=== PATIENT | male | born 1995 | race Two or more races ===

== ENCOUNTER 2022-09-10 01:25 | Emergency (ER) | payer OTHER ==
[~2022-09-10] VITALS: Ht 167.6 cm; Wt 65.0 kg
[2022-09-10 01:35] VITALS: BP 113/81
[2022-09-10 02:13] LABS: Basophils # (auto) 0.1 10 ^3/uL (0-0.2); Basophils % (auto) 0.6 % (0.0-2.0); Eosinophils # (auto) 0.1 10 ^3/uL (0-0.8); Hematocrit 47.1 % (41.0-53.0); Lymphocytes # (auto) 2.8 10 ^3/uL (0.4-5.4); Lymphocytes % (auto) 30.1 % (10.0-50.0); Mean Corpuscular Hemoglobin 27.7 pg (28.0-32.0); Mean Corpuscular Hgb Conc. 33.9 g/dL (32.0-36.0); Mean Corpuscular Volume 81.8 fL (80.0-100.0); Monocytes # (auto) 0.6 10 ^3/uL (0-1.3); Monocytes % (auto) 6.7 % (0.0-12.0); Neutrophils # (auto) 5.7 10 ^3/uL (1.6-8.6); Neutrophils % (auto) 61.6 % (37.0-80.0); Nucleated Red Blood Cells % 0.3 %; Red Blood Cells 5.76 10^6/uL (4.5-5.90); White Blood Cell 9.3 10^3/uL (4.4-10.8)
[2022-09-10 02:29] LABS: INR 0.94 (0.9-1.15); Partial Thromboplastin Time 28.3 sec (24.6-33.4)
[2022-09-10 03:02] LABS: Albumin 4.3 g/dL (3.4-5.0); Calcium 9.2 mg/dL (8.5-10.1); Magnesium 2.4 mg/dL (1.6-2.6); Potassium 4.4 mmol/L (3.5-5.1)
[2022-09-10 03:05] LABS: BUN/Creatinine Ratio 15.3 (10.0-20.0); Bilirubin, Total 0.5 mg/dL (0.2-1.0); Total Protein 8.3 g/dL (6.4-8.2)
== END 2022-09-10 05:47 | disposition home or self-care (01) ==
LOC: ER 01:25
DX: R07.2 Precordial pain (principal); E11.65 Type 2 diabetes mellitus with hyperglycemia; R74.8 Abnormal levels of other serum enzymes; M54.9 Dorsalgia, unspecified
CPT/HCPCS: 36415; 71045; 80053; 82962; 83735; 83880; 84484; 85025; 85610; 85730; 93005

== ENCOUNTER → 2022-09-11 | Outpatient (CLI) | payer OTHER ==
[2022-09-11 11:52] LABS: Urine Bacteria NONE SEEN /hpf (None Seen); Urine Blood Negative /uL (Negative); Urine Specific Gravity 1.029 (1.001-1.035); Urine WBC 1 /hpf (0 - 3)
[2022-09-11 12:38] LABS: CRP High Sensitivity 0.24 mg/dL (< 0.3)
== END | disposition home or self-care (01) ==
LOC: LAB 11:21
PROVIDERS: ATTEND Internal Medicine
DX: E11.9 Type 2 diabetes mellitus without complications (principal); R07.9 Chest pain, unspecified
CPT/HCPCS: 36415; 80061; 81001; 82570; 85379; 85652; 86141

== ENCOUNTER → 2022-10-02 | Outpatient (CLI) | payer OTHER | END | disposition home or self-care (01) | LOC: XYW 09:30 | PROVIDERS: ATTEND Internal Medicine | DX: R07.9 Chest pain, unspecified (principal) | CPT/HCPCS: 93306 ==

== ENCOUNTER → 2022-12-12 | Outpatient (CLI) | payer OTHER ==
[2022-12-12 11:08] LABS: Alanine Aminotransferase 33 U/L (7-40); Alkaline Phosphatase 112 U/L (46-116); Anion Gap 9.2 (5-15); Calcium 10.2 mg/dL (8.5-10.1); Carbon Dioxide 28.8 mmol/L (20-30); Chloride 103 mmol/L (98-107); Potassium 4.2 mmol/L (3.5-5.1); Sodium 141 mmol/L (136-145)
[2022-12-12 11:09] LABS: BUN/Creatinine Ratio 18.8 (10.0-20.0); Blood Urea Nitrogen 12 mg/dL (9-23); Glucose 81 mg/dL (74-106)
[2022-12-12 11:10] LABS: Creatinine, Urine 109.84 mg/dL (30.0-125.0)
[2022-12-12 11:11] LABS: Albumin 5.2 g/dL (3.2-4.8); Aspartate Aminotransferase 22 U/L (13-40); Bilirubin, Direct 0.2 mg/dL (<0.3); Bilirubin, Total 0.6 mg/dL (0.2-1.0); Total Protein 7.8 g/dL (5.7-8.2)
== END | disposition home or self-care (01) ==
LOC: LAB 09:05
PROVIDERS: ATTEND Internal Medicine
DX: E11.9 Type 2 diabetes mellitus without complications (principal); E78.5 Hyperlipidemia, unspecified
CPT/HCPCS: 36415; 80048; 80076; 82043; 82570; 83036

== ENCOUNTER 2024-01-07 18:31 | Inpatient (IN) | payer MEDICAID, OTHER ==
[~2024-01-07] VITALS: Ht 167.6 cm; Wt 62.0 kg
[2024-01-07] MEDS ORDERED: DEXTROSE (50%) 50ML SYRG IV PRN ×2 (18:45→21:15)
[2024-01-07] MEDS: InsuLIN REG 1unit/0.01ml Soln (100units/ml) IV ONE (19:02)
[2024-01-07] MEDS: INSULIN LANTUS (GLARGINE) 1 /0.01ml (100units/ml) SC ONE (19:02)
[2024-01-07] MEDS: SODIUM CHLORIDE 0.9% 1,000 ML IVB ONE (19:03)
[2024-01-07 19:16] LABS: Hemoglobin 17.9 g/dL (13.5-17.5); Mean Corpuscular Volume 93.4 fL (80.0-100.0); Platelet Count (auto) 437 10^3/uL (140-450); Red Cell Distribution Width 16.8 % (11.8-14.3)
[2024-01-07 19:19] LABS: Base Excess -25.2 mmol/L (-2.0-3.0)
[2024-01-07 19:21] LABS: Hematocrit 59.8 % (41.0-53.0)
[2024-01-07 19:25] LABS: White Blood Cell 30.6 10^3/uL (4.4-10.8)
[2024-01-07 19:27] LABS: Basophils % (manual) 0 (0.0-2.0); Blast Cells 0; Eosinophils % (manual) 0 (0-7); Metamyelocytes % 0; Myelocytes % 0; Promyelocytes % 0; Reactive Lymphocytes 0
[2024-01-07 19:33] LABS: Anion Gap 35.00001 (5-15); Chloride 108 mmol/L (98-107); Potassium 4.1 mmol/L (3.5-5.1); Sodium 153 mmol/L (136-145)
[2024-01-07 19:39] LABS: BUN/Creatinine Ratio 18.2 (10.0-20.0); Blood Urea Nitrogen 79 mg/dL (9-23)
[2024-01-07 19:50] LABS: Carbon Dioxide < 10 mmol/L (20-30); Glucose 1034 mg/dL (74-106)
[2024-01-07] MEDS: INSULIN DRIP 100 UNIT/100ML 100 ML IV SCH ×3 (19:52→23:26)
[2024-01-07] MEDS: ACCU-CHEK COMFORT CURVE STRIP VI SCH ×2 (19:52→22:33)
[2024-01-07] MEDS: SODIUM BICARB 8.4% 50Meq/50ml SYR Vial IV ONE ×2 (19:52)
[2024-01-07] MEDS: SODIUM CHLORIDE 0.9% 1,000 ML IV ONE (20:28)
[2024-01-07 20:32] LABS: COVID19 ANTIGEN SOFIA FIA NEGATIVE (NEGATIVE)
[2024-01-07 20:34] LABS: Band Neutrophils % (manual) 2
[2024-01-07 20:35] LABS: Anisocytosis Slight; Large Platelets FEW; Lymphocytes % (manual) 7 (10.0-50.0); Monocytes % (manual) 10 (0-12); Platelet Estimate Adequate
[2024-01-07 20:37] LABS: Lactic Acid w/Reflex 3.5 mmol/L (0.4-2.0)
[2024-01-07] MEDS: cefTRIAXone 1GM/50ML D5W 50 ML IV ONE (21:00)
[2024-01-07] MEDS: POTASSIUM CHL 20MEQ/100ML 100 ML IV ONE (21:51)
[2024-01-07 23:19] LABS: Urine Bacteria None Seen /hpf (None Seen)
[2024-01-07 23:28] LABS: Urine Blood TRACE /uL (Negative); Urine Clarity Clear (Clear); Urine Color Light-Yellow (Yellow); Urine Protein, UAD 1+ (Negative); Urine Specific Gravity 1.022 (1.001-1.035); Urine Urobilinogen Normal (Negative); Urine WBC 2 /hpf (0 - 3); Urine pH 5.5 (5.0-9.0)
[2024-01-08] VITALS (36 sets, daily range): BP systolic 108–135; BP diastolic 72–88; PULSE 96–129; RESP 9–48; TEMP 97.7–98.4; O2SAT 95–99
[2024-01-08] MEDS ORDERED: MORPHINE SULFATE INJ 2 MG/ml SYRG IV PRN (01:15)
[2024-01-08] MEDS ORDERED: ONDANSETRON HCL 4 MG/2 ML VIAL IV PRN (01:15)
[2024-01-08] MEDS ORDERED: NITROGLYCERIN 0.4 MG SL TAB SL PRN (01:15)
[2024-01-08 01:24] LABS: Potassium 2.8 mmol/L (3.5-5.1)
[2024-01-08 01:25] LABS: Anion Gap 21 (5-15); Carbon Dioxide 18 mmol/L (20-30)
[2024-01-08 01:26] LABS: Calcium 8.7 mg/dL (8.7-10.4)
[2024-01-08 01:28] LABS: Base Excess -6.5 mmol/L (-2.0-3.0)
[2024-01-08 01:30] LABS: BUN/Creatinine Ratio 22.2 (10.0-20.0)
[2024-01-08] MEDS: LORazepam 2MG/ML-1ML VIAL IV ONE (01:32)
[2024-01-08] MEDS: ACCU-CHEK COMFORT CURVE STRIP VI SCH (01:34)
[2024-01-08 01:37] LABS: Blood Urea Nitrogen 59 mg/dL (9-23); Chloride 131 mmol/L (98-107); Glucose 398 mg/dL (74-106)
[2024-01-08 01:38] LABS: Sodium 170 mmol/L (136-145)
[2024-01-08] MEDS: SOD CHL 0.45% 1,000 ML IV SCH (03:04)
[2024-01-08] MEDS ORDERED: SODIUM CHLORIDE 0.9% 1,000 ML IV SCH ×2 (05:15→07:15)
[2024-01-08 06:28] LABS: Eosinophils # (auto) 0 10 ^3/uL (0-0.8); Lymphocytes # (auto) 0.8 10 ^3/uL (0.4-5.4); Lymphocytes % (auto) 3.5 % (10.0-50.0); Mean Corpuscular Hemoglobin 28.3 pg (28.0-32.0); Monocytes # (auto) 2.7 10 ^3/uL (0-1.3); Nucleated Red Blood Cells % 0.1 %
[2024-01-08 06:34] LABS: Basophils # (auto) 0.1 10 ^3/uL (0-0.2); Basophils % (auto) 0.3 % (0.0-2.0); Hematocrit 51.4 % (41.0-53.0); Hemoglobin 17.5 g/dL (13.5-17.5); Mean Corpuscular Hgb Conc. 34.1 g/dL (32.0-36.0); Monocytes % (auto) 11.6 % (0.0-12.0); Neutrophils # (auto) 19.4 10 ^3/uL (1.6-8.6); Neutrophils % (auto) 84.6 % (37.0-80.0); Platelet Count (auto) 323 10^3/uL (140-450); Red Blood Cells 6.19 10^6/uL (4.5-5.90); Red Cell Distribution Width 14.4 % (11.8-14.3)
[2024-01-08 06:44] LABS: Alanine Aminotransferase 16 U/L (7-40); Albumin 4.5 g/dL (3.2-4.8); Alkaline Phosphatase 159 U/L (46-116); Anion Gap 13 (5-15); Aspartate Aminotransferase < 8 U/L (13-40); BUN/Creatinine Ratio 25.1 (10.0-20.0); Bilirubin, Total 0.6 mg/dL (0.2-1.0); Carbon Dioxide 26 mmol/L (20-30); Chloride 135 mmol/L (98-107); Magnesium 3.3 mg/dL (1.6-2.6); Phosphorus 1.7 mg/dL (2.4-5.1); Total Protein 7.4 g/dL (5.7-8.2)
[2024-01-08 06:45] LABS: Blood Urea Nitrogen 49 mg/dL (9-23); Glucose 164 mg/dL (74-106)
[2024-01-08 06:46] LABS: Sodium 174 mmol/L (136-145)
[2024-01-08] MEDS: D5W/SOD CHL 0.45% 1,000 ML IV SCH (07:55)
[2024-01-08] MEDS: INSULIN DRIP 100 UNIT/100ML 100 ML IV SCH ×2 (08:15→10:45)
[2024-01-08] MEDS: POTASSIUM CHL 20MEQ/100ML 100 ML IV SCH (08:23)
[2024-01-08] MEDS ORDERED: INSULIN LANTUS (GLARGINE) 1 /0.01ml (100units/ml) SC SCH (10:00)
[2024-01-08] MEDS: POTASSIUM PHOSPHATE 22 MEQ in SODIUM CHL 0.9% 100 ML IV ONE (11:21)
[2024-01-08] MEDS: POTASSIUM CHLORIDE 40 MEQ in D5W 5% 1,000 ML IV SCH (11:41)
[2024-01-08] MEDS: THIAMINE 100mg/ml INJ (200mg/2ml VIAL) IV SCH (12:11)
[2024-01-08 14:21] LABS: Chloride 135 mmol/L (98-107)
[2024-01-08 14:22] LABS: Anion Gap 7 (5-15); Calcium 8.7 mg/dL (8.7-10.4); Carbon Dioxide 29 mmol/L (20-30)
[2024-01-08 14:27] LABS: BUN/Creatinine Ratio 28.5 (10.0-20.0); Blood Urea Nitrogen 43 mg/dL (9-23)
[2024-01-08 14:28] LABS: Glucose 269 mg/dL (74-106)
[2024-01-08 14:30] LABS: Sodium 171 mmol/L (136-145)
[2024-01-08] MEDS: D5W 5% 1,000 ML IV ONE (16:18)
[2024-01-08 19:49] LABS: Chloride 128 mmol/L (98-107); Potassium 3.6 mmol/L (3.5-5.1)
[2024-01-08 19:50] LABS: Anion Gap 10 (5-15); Carbon Dioxide 29 mmol/L (20-30)
[2024-01-08 19:51] LABS: Calcium 8.6 mg/dL (8.7-10.4)
[2024-01-08 19:55] LABS: BUN/Creatinine Ratio 25.8 (10.0-20.0); Blood Urea Nitrogen 34 mg/dL (9-23); Glucose 229 mg/dL (74-106)
[2024-01-08 20:10] LABS: Sodium 167 mmol/L (136-145)
[2024-01-08] MEDS: D5W 5% 1,000 ML IV SCH (22:00)
[2024-01-08] MEDS ORDERED: D5W 5% 1,000 ML IV SCH (22:00)
[2024-01-08] MEDS: POTASSIUM CHL 20MEQ/100ML 100 ML IV ONE (23:00)
[2024-01-09] VITALS (20 sets, daily range): BP systolic 100–122; BP diastolic 49–76; PULSE 75–110; RESP 11–21; TEMP 97.9–98.9; O2SAT 93–98
[2024-01-09 05:21] LABS: Chloride 124 mmol/L (98-107)
[2024-01-09 05:22] LABS: Anion Gap 5 (5-15); Calcium 8.2 mg/dL (8.7-10.4); Carbon Dioxide 32 mmol/L (20-30)
[2024-01-09 05:27] LABS: BUN/Creatinine Ratio 25.5 (10.0-20.0); Blood Urea Nitrogen 27 mg/dL (9-23); Glucose 179 mg/dL (74-106)
[2024-01-09 05:35] LABS: Sodium 161 mmol/L (136-145)
[2024-01-09] MEDS: POTASSIUM CHL 20MEQ/100ML 100 ML IV SCH (06:32)
[2024-01-09 09:35] LABS: Protein, Urine 59.4 mg/dL (0.0-11.9)
[2024-01-09 09:38] LABS: Creatinine, Urine 108.47 mg/dL (30.0-125.0)
[2024-01-09] MEDS ORDERED: DEXTROSE (50%) 50ML SYRG IV PRN (10:30)
[2024-01-09] MEDS ORDERED: POTASSIUM CHLORIDE 40 MEQ, LIDOCAINE 1% (LOCAL ANESTH.) 4 ML in SODIUM CHL 0.9% 250 ML IV ONE (10:30)
[2024-01-09] MEDS: D5W 5% 1,000 ML IV SCH (11:03)
[2024-01-09] MEDS: PANTOPRAZOLE 40 MG/10 ML VIAL INJ IV ONE (11:18)
[2024-01-09] MEDS: POTASSIUM PHOSPHATE 44 MEQ in D5W 5% 250 ML IV ONE (11:20)
[2024-01-09] MEDS: INSULIN LANTUS (GLARGINE) 1 /0.01ml (100units/ml) SC ONE (11:21)
[2024-01-09] MEDS: ACCU-CHEK COMFORT CURVE STRIP VI SCH (12:05)
[2024-01-09] MEDS: InsuLIN REG 1unit/0.01ml Soln (100units/ml) SC SCH (12:06)
[2024-01-09 14:54] LABS: Anion Gap 8 (5-15); Carbon Dioxide 30 mmol/L (20-30); Chloride 116 mmol/L (98-107); Potassium 3.6 mmol/L (3.5-5.1)
[2024-01-09 14:55] LABS: Calcium 8.6 mg/dL (8.7-10.4)
[2024-01-09 14:59] LABS: Glucose 216 mg/dL (74-106)
[2024-01-09 15:00] LABS: BUN/Creatinine Ratio 22.1 (10.0-20.0); Blood Urea Nitrogen 17 mg/dL (9-23); Magnesium 2.5 mg/dL (1.6-2.6)
[2024-01-09 15:04] LABS: Sodium 154 mmol/L (136-145)
[2024-01-09 16:38] LABS: Urine Bacteria None Seen /hpf (None Seen)
[2024-01-09 16:53] LABS: Urine Blood 3+ /uL (Negative); Urine Clarity Ex.Turbid (Clear); Urine Color Light-Red (Yellow); Urine Protein, UAD 1+ (Negative); Urine Urobilinogen Normal (Negative); Urine WBC 311 /hpf (0 - 3)
[2024-01-09] MEDS: INSULIN LANTUS (GLARGINE) 1 /0.01ml (100units/ml) SC SCH (22:02)
[2024-01-09] MEDS: THROAT LOZENGES(CEPASTAT) MT PRN (22:45)
[2024-01-10] VITALS (7 sets, daily range): BP systolic 104–118; BP diastolic 59–70; PULSE 69–86; RESP 14–17; TEMP 97.6–99.4; O2SAT 96–100
[2024-01-10 06:02] LABS: Basophils # (auto) 0 10 ^3/uL (0-0.2); Basophils % (auto) 0.2 % (0.0-2.0); Eosinophils # (auto) 0.1 10 ^3/uL (0-0.8); Eosinophils % (auto) 0.7 % (0.0-7.0); Hematocrit 41.4 % (41.0-53.0); Hemoglobin 14.7 g/dL (13.5-17.5); Lymphocytes # (auto) 2.4 10 ^3/uL (0.4-5.4); Lymphocytes % (auto) 27.3 % (10.0-50.0); Mean Corpuscular Hemoglobin 29.3 pg (28.0-32.0); Mean Corpuscular Hgb Conc. 35.6 g/dL (32.0-36.0); Mean Corpuscular Volume 82.3 fL (80.0-100.0); Monocytes # (auto) 0.5 10 ^3/uL (0-1.3); Monocytes % (auto) 6.3 % (0.0-12.0); Neutrophils # (auto) 5.7 10 ^3/uL (1.6-8.6); Neutrophils % (auto) 65.5 % (37.0-80.0); Platelet Count (auto) 188 10^3/uL (140-450); Red Blood Cells 5.03 10^6/uL (4.5-5.90); Red Cell Distribution Width 13.8 % (11.8-14.3); White Blood Cell 8.7 10^3/uL (4.4-10.8)
[2024-01-10 06:15] LABS: Alanine Aminotransferase 20 U/L (7-40); Albumin 3.9 g/dL (3.2-4.8); Alkaline Phosphatase 119 U/L (46-116); Anion Gap 4 (5-15); Aspartate Aminotransferase 19 U/L (13-40); BUN/Creatinine Ratio 21.7 (10.0-20.0); Blood Urea Nitrogen 13 mg/dL (9-23); Calcium 8.9 mg/dL (8.7-10.4); Carbon Dioxide 31 mmol/L (20-30); Chloride 115 mmol/L (98-107); Glucose 192 mg/dL (74-106); Magnesium 2.5 mg/dL (1.6-2.6); Phosphorus 3.1 mg/dL (2.4-5.1); Potassium 3.3 mmol/L (3.5-5.1); Sodium 150 mmol/L (136-145)
[2024-01-10 06:16] LABS: Total Protein 6.1 g/dL (5.7-8.2)
[2024-01-10] MEDS: cefTRIAXone 1GM/50ML D5W 50 ML IV SCH (08:21)
[2024-01-10] MEDS: PANTOPRAZOLE 40 MG/10 ML VIAL INJ IV SCH (12:30)
[2024-01-10] MEDS: POTASSIUM CHL 20MEQ/100ML 100 ML IV SCH (13:00)
[2024-01-10] MEDS: Glucerna Carbsteady SHAKE Vanilla 8oz PO SCH (18:00)
[2024-01-10] MEDS ORDERED: Ensure HIGH Protein Vanilla 8oz Bottle PO SCH (18:00)
[2024-01-10 18:07] LABS: Chloride 111 mmol/L (98-107); Potassium 4.1 mmol/L (3.5-5.1); Sodium 144 mmol/L (136-145)
[2024-01-10 18:08] LABS: Anion Gap 5 (5-15); Calcium 9.6 mg/dL (8.7-10.4); Carbon Dioxide 28 mmol/L (20-30)
[2024-01-10 18:13] LABS: BUN/Creatinine Ratio 18.1 (10.0-20.0); Blood Urea Nitrogen 13 mg/dL (9-23); Glucose 259 mg/dL (74-106)
[2024-01-11 00:41] VITALS: BP 123/73; PULSE 85; RESP 16; TEMP 98.4; O2SAT 98
[2024-01-11 04:41] VITALS: BP 119/63; PULSE 65; RESP 14; TEMP 98.2; O2SAT 99
[2024-01-11 07:25] LABS: Basophils # (auto) 0 10 ^3/uL (0-0.2); Basophils % (auto) 0.4 % (0.0-2.0); Eosinophils # (auto) 0.2 10 ^3/uL (0-0.8); Eosinophils % (auto) 2.1 % (0.0-7.0); Hematocrit 43.9 % (41.0-53.0); Hemoglobin 15.3 g/dL (13.5-17.5); Lymphocytes # (auto) 1.8 10 ^3/uL (0.4-5.4); Lymphocytes % (auto) 20.6 % (10.0-50.0); Mean Corpuscular Hemoglobin 28.5 pg (28.0-32.0); Mean Corpuscular Hgb Conc. 34.8 g/dL (32.0-36.0); Monocytes # (auto) 0.5 10 ^3/uL (0-1.3); Monocytes % (auto) 5.8 % (0.0-12.0); Neutrophils # (auto) 6.3 10 ^3/uL (1.6-8.6); Neutrophils % (auto) 71.1 % (37.0-80.0); Nucleated Red Blood Cells % 0.1 %; Platelet Count (auto) 179 10^3/uL (140-450); Red Blood Cells 5.35 10^6/uL (4.5-5.90); Red Cell Distribution Width 13.7 % (11.8-14.3); White Blood Cell 8.8 10^3/uL (4.4-10.8)
[2024-01-11 07:40] LABS: Alanine Aminotransferase 22 U/L (7-40); Albumin 4.2 g/dL (3.2-4.8); Alkaline Phosphatase 123 U/L (46-116); Anion Gap 6 (5-15); Aspartate Aminotransferase 15 U/L (13-40); BUN/Creatinine Ratio 20.6 (10.0-20.0); Blood Urea Nitrogen 13 mg/dL (9-23); Carbon Dioxide 29 mmol/L (20-30); Chloride 110 mmol/L (98-107); Magnesium 2.4 mg/dL (1.6-2.6); Potassium 4.1 mmol/L (3.5-5.1); Sodium 145 mmol/L (136-145)
[2024-01-11 07:41] LABS: Bilirubin, Total 1.3 mg/dL (0.2-1.0); Total Protein 6.8 g/dL (5.7-8.2)
[2024-01-11 08:34] LABS: Glucose 147 mg/dL (74-106)
[2024-01-11] MEDS ORDERED: INSLANTI SC (09:59)
[2024-01-11] MEDS: POTASSIUM CHL 20 Meq TABLET PO ONE (10:00)
[2024-01-11 13:00] VITALS: BP 117/62; PULSE 96; RESP 17; TEMP 98.4; O2SAT 98
[2024-01-11] MEDS: POTASSIUM EFFERVESENT TAB 25 MEQ PO ONE (15:31)
== END 2024-01-11 16:00 | disposition home or self-care (01) | DRG 420 ==
LOC: ER 18:31 → EDBD 18:31 → OVERFLOW 01-08 01:15 → ICU WEST 01-08 04:00 → ICU CENTRL 01-09 02:00 → DOU IN ICU 01-09 15:25 → TELE-WESTW 01-09 18:10 → WEST WING 01-10 15:56
PROVIDERS: ADMIT Nurse Practitioner; ATTEND Family Medicine
PROC: 05H933Z Insertion of Infusion Device into Right Brachial Vein, Percutaneous Approach (ICD-10-PCS; principal; 2024-01-08)
PROC: B54MZZA Ultrasonography of Right Upper Extremity Veins, Guidance (ICD-10-PCS; 2024-01-08)
PROC: 05HA33Z Insertion of Infusion Device into Left Brachial Vein, Percutaneous Approach (ICD-10-PCS; 2024-01-08)
PROC: B54NZZA Ultrasonography of Left Upper Extremity Veins, Guidance (ICD-10-PCS; 2024-01-08)
DX: E10.10 Type 1 diabetes mellitus with ketoacidosis without coma (principal); N17.0 Acute kidney failure with tubular necrosis; R65.11 Systemic inflammatory response syndrome (SIRS) of non-infectious origin with acute organ dysfunction; G93.41 Metabolic encephalopathy; E87.0 Hyperosmolality and hypernatremia; E83.39 Other disorders of phosphorus metabolism; E83.41 Hypermagnesemia; Z20.822 Contact with and (suspected) exposure to COVID-19; F10.10 Alcohol abuse, uncomplicated; E87.6 Hypokalemia; R13.10 Dysphagia, unspecified; Z79.4 Long term (current) use of insulin; Z79.899 Other long term (current) drug therapy; Z91.199 Patient's noncompliance with other medical treatment and regimen due to unspecified reason; Y90.0 Blood alcohol level of less than 20 mg/100 ml
CPT/HCPCS: 36415; 36600; 71045; 76775; 80048; 80053; 80320; 81001; 82010; 82570; 82805; 82962; 83036; 83605; 83735; 83930; 83935; 84100; 84156; 84300; 85007; 85025; 85027; 87040; 87081; 87086; 87426; 93005; 99291; G0378; J1815; J2001; J2470; J3480; J7042; J7060

== ENCOUNTER → 2024-07-08 | Outpatient (CLI) | payer MEDICAID ==
[~2024-07-08] MED LIST: INSLANTI SC
[2024-07-08 10:09] LABS: Creatinine, Urine 111.19 mg/dL (30.0-125.0)
[2024-07-08 10:11] LABS: Alanine Aminotransferase 22 U/L (7-40); Anion Gap 7 (5-15); BUN/Creatinine Ratio 10.8 (10.0-20.0); Blood Urea Nitrogen 9 mg/dL (9-23); Calcium 9.9 mg/dL (8.7-10.4); Carbon Dioxide 31 mmol/L (20-31); Chloride 103 mmol/L (98-107); Potassium 3.8 mmol/L (3.5-5.1); Sodium 141 mmol/L (136-145); Total Protein 7.4 g/dL (5.7-8.2); Triglycerides 149 mg/dL (< 150)
[2024-07-08 10:12] LABS: Albumin 4.9 g/dL (3.2-4.8); Alkaline Phosphatase 145 U/L (46-116); Aspartate Aminotransferase 11 U/L (13-40); Bilirubin, Total 0.5 mg/dL (0.2-1.0); Cholesterol 191 mg/dL (< 200); Glucose 272 mg/dL (74-106); HDL Cholesterol 47 mg/dL (40-59); LDL Cholesterol 130 mg/dL (< 100)
== END | disposition home or self-care (01) ==
LOC: LAB 09:19
PROVIDERS: ATTEND Internal Medicine
DX: E11.9 Type 2 diabetes mellitus without complications (principal); E78.5 Hyperlipidemia, unspecified; N52.9 Male erectile dysfunction, unspecified
CPT/HCPCS: 36415; 80053; 80061; 82043; 82570; 83036; 84403